=== PATIENT | female | born 1975 | race Caucasian/White ===

== ENCOUNTER 2018-11-25 02:43 | Emergency (ER) | payer BC ==
[2018-11-25 02:50] VITALS: BP 122/87; PULSE 65; TEMP 98.5; BMI 27.4
[2018-11-25] MEDS ORDERED: SODIUM CHLORIDE 1,000 ML IV STA (02:52)
[2018-11-25] MEDS ORDERED: KETOROLAC TROMETHAMINE 30 MG/1 ML VIAL IVPUSH ONE (02:52)
--- NOTE | 2018-11-25 02:52 | PDOC ---
History of Present Illness - General Chief Complaint: Pain, Acute Stated Complaint: ABDOMINAL PAIN Time Seen by Provider: 11/25/18 02:44 - History of Present Illness Initial Comments: 11/25/18 02:54 This 43-year-old woman with no significant past medical history except for bariatric surgery and tubal ligation in the past, presents with 1 hour history of crampy abdominal pain (periumbilical) which awakened her from sleep. Patient states that the pain comes "in waves". She denies nausea/vomiting/ diarrhea. She has no history of fever or chills. She states that "all" members of her family, except for her, had acute gastroenteritis recently. 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 No history of renal stones or gallstones. No recent travel; had recent (3 weeks ago) short course (few day) of antibiotics after brachioplasty Past History - Past Medical History Allergies/Adverse Reactions: Allergies Allergy/AdvReac Type Severity Reaction Status Date / Time No Known Allergies Allergy Verified 11/25/18 02:44 Home Medications: Ambulatory Orders NK [No Known Home Medication] 11/25/18 Review of Systems - Review of Systems Able to Perform ROS?: Yes Comments:: 12 point review of systems is negative except for what is noted in the history of present illness *Physical Exam - Physical Exam Comments: GENERAL: Adult female, in moderate distress secondary to intermittent periumbilical abdominal pain HEAD: Normal with no signs of trauma. EYES: PERRLA, EOMI, sclera anicteric, conjunctiva clear. ENT: Ears normal, nares patent, oropharynx clear without exudates. Dry mucous membranes. NECK: Normal range of motion, supple without lymphadenopathy, JVD, or masses. LUNGS: Breath sounds equal, clear to auscultation bilaterally. No wheezes, and no crackles. HEART:Regular rate and rhythm, normal S1 and S2 without murmur, rub or gallop. ABDOMEN:.Hyperactive bowel sounds . Mild generalized abdominal tenderness. No guarding or rebound.No masses No distention. EXTREMITIES: Normal range of motion, no edema. No clubbing or cyanosis. No erythema, or tenderness. Well-healing brachioplasty incisions bilateral medial aspect of the upper arms NEUROLOGICAL: Cranial nerves II through XII grossly intact. Normal speech. No focal neurological deficits. MUSCULOSKELETAL: Back non-tender to palpation, no CVA tenderness SKIN: Warm, Dry, normal turgor, no rashes or lesions noted. ED Treatment Course - LABORATORY CBC & Chemistry Diagram: 11/25/18 03:00 11/25/18 03:00 Medical Decision Making - Medical Decision Making This 43 year old woman presents with a few hour history of intermittent periumbilical pain without associated symptoms of nausea/vomiting/diarrhea or fever. Differential diagnosis includes early acute gastroenteritis, renal colic, early small bowel obstruction (in light of patient's previous bariatric surgery). Patient given a liter NS IV and 30 mg Toradol IV. CBC/chemistry profile/UA sent Patient had significant relief after IV hydration and IV Toradol. Laboratory evaluation was essentially normal except for evidence of mild prerenal azotemia. Urinalysis showed some cells/few bacteria but also mucus is; this is likely a contaminated specimen but urine culture and sensitivity sent Patient was able to sleep and awakened with no further pain. Patient discharged with instructions to maintain a light diet and advance diet very cautiously. She should return to the emergency room if she has any recurrent pain or develops vomiting/fever *DC/Admit/Observation/Transfer Diagnosis at time of Disposition: Abdominal pain Qualifiers: Abdominal location: generalized Qualified Code(s): R10.84 - Generalized abdominal pain - Discharge Dispostion Disposition: HOME Condition at time of disposition: Stable - Referrals - Patient Instructions Printed Discharge Instructions: DI for Abdominal Pain-Adult Additional Instructions: light diet advance diet cautiously return if you have persistent, severe pain/vomiting/fever followup with your doctor within 2 days - Post Discharge Activity
[2018-11-25] MEDS ORDERED: KETOROLAC TROMETHAMINE 30 MG/1 ML VIAL ONE (02:59)
[2018-11-25 03:57] LABS: URINE APPEARANCE SLCLOUDY; URINE BILIRUBIN NEGATIVE (<2.0 mg/dL); URINE COLOR YELLOW; URINE GLUCOSE (UA) NEGATIVE (NEGATIVE); URINE KETONE TRACE (NEGATIVE); URINE LEUK ESTERASE 2+ (NEGATIVE); URINE NITRITE NEGATIVE (NEGATIVE); URINE PROTEIN NEGATIVE (NEGATIVE)
[2018-11-25 04:00] LABS: EPI CELLS FEW /HPF (FEW); URINE BACTERIA FEW /hpf (NONE SEEN); URINE MUCUS MANY
[2018-11-25 04:29] LABS: ALK PHOS 68 U/L (45-117); ANION GAP 8 MMOL/L (8-16); BILIRUBIN,TOTAL 0.6 mg/dL (0.2-1); BLOOD UREA NITROGEN 20 mg/dL (7-18); CHLORIDE 109 mmol/L (98-107); CO2 24 mmol/L (21-32); CREATININE 0.6 mg/dL (0.55-1.3); GLUCOSE,RANDOM 102 mg/dL (74-106); POTASSIUM 3.8 mmol/L (3.5-5.1); SGOT/AST 17 U/L (15-37); SGPT/ALT 20 U/L (13-61); SODIUM 142 mmol/L (136-145); TOT PROT 7.7 g/dl (6.4-8.2)
[2018-11-25 04:50] LABS: BASO % 0.8 % (0-2.0); EOS % 1.2 % (0-4.5); HEMATOCRIT 34.9 % (32.4-45.2); HEMOGLOBIN 11.5 GM/dL (10.7-15.3); LYMPH % 31.6 % (8-40); MCH 25.8 pg (25.7-33.7); MCHC 32.9 g/dl (32.0-36.0); MEAN CELL VOLUME 78.5 fl (80-96); MEAN PLT VOLUME 9.6 fl (7.5-11.1); MONO % 11.4 % (3.8-10.2); PLATELET COUNT 213 K/MM3 (134-434); RBC 4.45 M/mm3 (3.60-5.2); RDW 16.2 % (11.6-15.6); WHITE BLOOD COUNT 6.7 K/mm3 (4.0-10.0)
== END 2018-11-25 05:20 | disposition home or self-care (01) ==
LOC: FER 02:43
PROC: 3E0333Z Introduction of Anti-inflammatory into Peripheral Vein, Percutaneous Approach (ICD-10-PCS; principal; 2018-11-25)
PROC: 3E0337Z Introduction of Electrolytic and Water Balance Substance into Peripheral Vein, Percutaneous Approach (ICD-10-PCS; 2018-11-25)
DX: R10.84 Generalized abdominal pain (principal); Z98.84 Bariatric surgery status
CPT/HCPCS: 36415; 80053; 81003; 81015; 83690; 85025; 87086; 99281-25; J7030